=== PATIENT | female | born 1940 | race Caucasian/White ===

== ENCOUNTER 2016-05-06 23:31 | Emergency (ER) | payer BC ==
[~2016-05-06] VITALS: Ht 167.6 cm; Wt 63.2 kg
[~2016-05-06 23:31] MED LIST: ALBUAER2 INH; ASPCH81X PO; CLOP1TAB5 PO; MAGN400T6 PO; METO25TA56 PO; MULT-506 PO; PRED1SUS3; SIMV-151 PO; SNG10 PO; ZLF/50 PO
[2016-05-06 23:32] VITALS: TEMP 36.9; Ht 167.6 cm; Wt 63.2 kg
--- NOTE | 2016-05-07 00:02 | EMERGENCY ROOM VISIT NOTE ---
History Report prepared by Loreta: Flo Garcia Under the Supervision of: Dr. Mingo Medellin M.D. First contact with patient: 23:38 Chief Complaint: HAND PAIN/INJURY Stated Complaint: RT HAND SWOLLEN History of Present Illness The patient is a 75 year old female who presents to the Emergency Room with complaints of worsening right hand swelling beginning shortly prior to arrival. She states that she noticed the swelling after typing on her computer. She denies any known trauma. The patient has taken Benadryl for her swelling, but has seen no relief. She is on Plavix and aspirin after a previous cardiac bypass surgery. She denies any fevers, chills, nausea, vomiting, headaches, black or blood stools, chest pain, SOB, or rashes. Source of History: patient Onset: shortly prior to arrival Position: hand (right) Quality: other (swelling) Timing: worsening Associated Symptoms: No SOB, No chest pain, No chills, No fevers, No headache, No hematochezia, No melena, No nausea, No vomiting Review of Systems See HPI for pertinent positives & negatives. A total of 6 systems reviewed and were otherwise negative. Past Medical & Surgical Medical Problems: (1) Asthma (2) Heart murmur (3) HTN (hypertension) (4) Hyperlipidemia (5) Sensory stroke Family History Diabetes mellitus FHx: cancer FHx: gallbladder disease FHx: heart disease Hypertension Social History Smoking Status: Never Smoker Alcohol Use: none Marital Status: Housing Status: lives with significant other Occupation Status: employed Current/Historical Medications Scheduled Aspirin (Aspirin Chewable), 81 MG PO QAM Atorvastatin (Lipitor), 20 MG PO DAILY Clopidogrel Bisulfate (Plavix), 75 MG PO QAM Metoprolol Tartrate (Lopressor) (Lopressor), 12.5 MG PO BID Montelukast Sod (Montelukast Sodium), 1 TAB PO QPM Multivitamin (Multivitamin), 1 TAB PO QAM Sertraline HCl (Sertraline HCl), 25 MG PO Q2D Allergies Coded Allergies: No Known Allergies (Unverified , 05/07/16) Physical Exam Vital Signs Date Time Temp Pulse Resp B/P Pulse Ox O2 Delivery O2 Flow Rate FiO2 05/07/16 00:14 73 16 176/84 96 05/06/16 23:32 36.9 75 18 195/90 95 Room Air Physical Exam GENERAL: Patient is well appearing and in minimal distress. HEENT: No acute trauma, normocephalic atraumatic, mucous membranes moist, no nasal congestion, no scleral icterus. NECK: No stridor, no adenopathy, no meningismus, trachea is midline. LUNGS: No dyspnea. Clear to auscultation and equal bilaterally. No wheeze, no rhonchi. HEART: Regular rate and rhythm. No murmurs, rubs, gallops appreciated. ABDOMEN: Soft, nontender, bowel sounds positive, no masses appreciated, no peritonitis. BACK: No midline tenderness, no CVA tenderness EXTREMITIES: Large hematoma over the right dorsal hand extending from the wrist to the knuckles. No tenderness. Normal warmth. No erythema. Intact movement and sensation. NEUROLOGIC: Alert and oriented, no acute motor or sensory deficits, no focal weakness, cranial nerves grossly intact. SKIN: No rash, no jaundice, no diaphoresis. Medical Decision & Procedures ER Provider Diagnostic Interpretation: Three View Right Hand X-ray interpreted by me: soft tissue swelling over distal hand. No fracture or dislocation. ED Course 2339: The patient was evaluated in room C2B. A complete history and physical exam was performed. 0007: Reevaluated the patient. She recalls that she hit her hand off of a door two nights ago, but did not notice any significant swelling until today. Discussed results and discharge instructions: she verbalized understanding and agreement. 0015: The patient is ready for discharge. Medical Decision Differential: Fracture, Dislocation, Cellulitis, Septic Joint, Ligamentous Injury, Effusion, DVT, amongst other pathologies entertained. 75 yr old female with large hematoma over dorsal aspect right hand. On plavix/ asa. On discharge she recalled hitting hand off door 2 days ago thus I feel this is likely delayed bleeded secondary to trauma while on blood thinners. No neuro/vasc compromise. There is no evidence of fracture/dislocation/fb. She has no evidence of infection at the site. Discussed symptoms to monitor for. I had her remove rings on that hand in cause swelling increases. Impression Primary Impression: Spontaneous hematoma of hand Scribe Attestation The scribe's documentation has been prepared under my direction and personally reviewed by me in its entirety. I confirm that the note above accurately reflects all work, treatment, procedures, and medical decision making performed by me. Departure Information Dispostion Home / Self-Care Referrals Bright Carl M.D. (PCP) Patient Instructions ED Hematoma, [facility]
[2016-05-07] MEDS ORDERED: ATOR-22 PO (00:13)
[2016-05-07 00:14] VITALS: BP 176/84; PULSE 73; O2SAT 96
--- NOTE | 2016-05-07 07:43 | DIAGNOSTIC IMAGING REPORT ---
RIGHT HAND 3 VIEWS CLINICAL HISTORY: Soft tissue swelling. No reported history of trauma. FINDINGS: 3 views of the right hand are obtained. No prior studies are available for comparison at the time of dictation. The skeletal structures are osteopenic. No fracture is seen. Mild osteoarthritic change is present involving the interphalangeal joints as well as the first metacarpophalangeal joint. There is significant dorsal soft tissue edema. No subcutaneous gas or radiodense foreign body is seen. IMPRESSION: 1. There is marked dorsal soft tissue edema. No acute bony abnormality is identified. 2. Osteopenia and mild arthritic change as above. Electronically signed by: Bull Shi M.D. 05/07/2016 7:42 AM Dictated Date/Time: 05/07/2016 7:39 AM
== END 2016-05-07 00:15 | disposition home or self-care (01) ==
LOC: C.EDB 23:31 → C.EDC 05-07 00:15
DX: S60.221A Contusion of right hand, initial encounter (principal); X58.XXXA Exposure to other specified factors, initial encounter; J45.909 Unspecified asthma, uncomplicated; R01.1 Cardiac murmur, unspecified; I10 Essential (primary) hypertension; E78.5 Hyperlipidemia, unspecified; Z86.73 Personal history of transient ischemic attack (TIA), and cerebral infarction without residual deficits; Z82.49 Family history of ischemic heart disease and other diseases of the circulatory system; Z79.02 Long term (current) use of antithrombotics/antiplatelets; Z79.82 Long term (current) use of aspirin; Z79.899 Other long term (current) drug therapy

== ENCOUNTER → 2016-09-19 | Outpatient (CLI) | payer BC ==
[~2016-09-19] MED LIST changes: -ALBUAER2 INH; +ATOR-22 PO; -MAGN400T6 PO; -PRED1SUS3; -SIMV-151 PO
--- NOTE | 2016-09-19 13:48 | MAMMOGRAPHY REPORT ---
BILATERAL DIGITAL SCREENING MAMMOGRAM WITH CAD: 09/19/2016 CLINICAL HISTORY: Routine screening. Patient has no complaints. TECHNIQUE: Current study was also evaluated with a Computer Aided Detection (CAD) system. Bilateral CC and MLO views were obtained. COMPARISON: Comparison is made to exams dated: 09/11/2015 mammogram, 09/05/2014 mammogram, 08/23/2013 ma mmogram, 07/07/2012 mammogram, 06/11/2011 mammogram, and 06/05/2010 mammogram - [facility] ter. BREAST COMPOSITION: The tissue of both breasts is heterogeneously dense, which may obscure small mas ses. FINDINGS: No suspicious masses, calcifications, or areas of architectural distortion are noted in ei ther breast. There has been no significant interval change compared to prior exams. Scattered bilate ral benign-appearing calcifications are not significantly changed. A linear scar marker denotes a sc ar on the right upper outer breast. IMPRESSION: ACR BI-RADS CATEGORY 2: BENIGN There is no mammographic evidence of malignancy. A 1 year screening mammogram is recommended. The pa tient will receive written notification of the results. Approximately 10% of breast cancers are not detected with mammography. A negative mammographic report should not delay biopsy if a clinically suggestive mass is present. Анна Conley M.D. /:09/19/2016 11:09:16 Wellness Coordinator: Brandy Smallwood [facility] letter sent: Normal 1/2 BI-RADS Code: ACR BI-RADS Category 2: Benign
== END | disposition home or self-care (01) ==
LOC: C.MAMM 09:54
PROVIDERS: ATTEND Family Medicine
DX: Z12.31 Encounter for screening mammogram for malignant neoplasm of breast (principal)

== ENCOUNTER → 2017-05-11 | Outpatient (CLI) | payer OTHER | END | disposition home or self-care (01) | LOC: C.MAMM 07:57 | PROVIDERS: ATTEND Family Medicine | DX: E28.39 Other primary ovarian failure (principal) ==

== ENCOUNTER → 2017-06-05 | Outpatient (CLI) | payer OTHER | END | disposition home or self-care (01) | LOC: C.LAB1850 08:32 | PROVIDERS: ATTEND Internal Medicine Cardiovascular Disease | DX: E78.00 Pure hypercholesterolemia, unspecified (principal); I25.10 Atherosclerotic heart disease of native coronary artery without angina pectoris ==

== ENCOUNTER 2020-08-06 00:18 | Inpatient (IN) ==
[2020-08-06] MEDS ORDERED: SODIUM CHLORIDE 0.9% 1000ML 1,000 ML IV ONE ×2 (00:34→01:43)
--- NOTE | 2020-08-06 01:12 | Emergency Department Note ---
Impression & Plan Acute hypotension, Diarrhea, Vomiting, Acidosis, lactic ED Provider Note NAME: LAURA BARBER AGE: 79 SEX: F : 1940 ARRIVES VIA: Walk-In INFORMANT: Patient, the patient's family member ED PROVIDER(S): Jim Tabares DO CHIEF COMPLAINT: Diarrhea HPI: The patient is a 79-year-old female who presented to the emergency department for an evaluation of diarrhea. 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 She has not had surgery or radiation therapy but started having chemotherapy recently. The patient started having abdominal cramping and loose bowel movements over the last 48 hours. Her symptoms have become significantly worsened over the last day. The patient states she is also had generalized weakness. She was noted to have low blood pressure. She denies having any fever or chest pain. She denies having any cough. The patient herself has noticed some rectal bleeding but only after she has an episode of diarrhea. She has had no hematemesis. The patient states her symptoms are moderate to severe. She is not been seen recently by her primary care physician. ROS: See above HPI for pertinent positives & negatives. A total of 10 systems reviewed and were otherwise negative. PAST MEDICAL HISTORY: See Below PAST SURGICAL HISTORY: See Below FAMILY HISTORY: See Below SOCIAL HISTORY: See Below HOME MEDICATIONS: See Below ALLERGIES: See Below VITALS: See Below PHYSICAL EXAMINATION: GENERAL: The patient is awake and alert. She is very anxious appearing appears to be in significant pain. EYES: The conjunctivae are clear. The pupils are round and reactive. EARS, NOSE, MOUTH AND THROAT: The nose is without any evidence of any deformity. NECK: The neck is nontender and supple. RESPIRATORY: Normal respiratory effort is noted there is no evidence of wheezing rhonchi or rales CARDIOVASCULAR: Regular rate and rhythm was noted to auscultation. Systolic murmur was noted. GASTROINTESTINAL: The abdomen is soft and mildly distended. There is diffuse tenderness to palpation but no guarding rigidity. MUSCULOSKELETAL/EXTREMITIES: There is no evidence of gross deformity full range of motion is noted in the hips and shoulders. SKIN: Skin is cool and diaphoretic. There is no significant pedal edema. NEUROLOGIC: Patient is awake alert and oriented x3 strength is symmetric patellar reflexes are 2+ bilaterally MEDICAL DECISION MAKING: The patient is a 79-year-old female who was diagnosed with cholangiocarcinoma in March this year. She started receiving chemotherapy recently. She started blanc ving abdominal discomfort and diarrhea earlier tonight. The patient was having significant symptoms and had multiple episodes of watery diarrhea. She was hypotensive initially. She was treated with IV fluids and IV antiemetics. She was reevaluated multiple times. She was feeling significantly improved on reevaluation but continued to have significant amount of diarrhea. For this reason I [facility] to evaluate the patient in the emergency department for further management and disposition. The patient's x-ray does not appear to be consistent with bowel obstruction. The patient's laboratory studies do not appear to be consistent with an infectious process however stool studies are pending at this time. Triage Nursing notes reviewed. Prior medical records reviewed Vital Signs: reviewed and remarkable for initial hypotension. Differential diagnosis: Infection, dehydration, metabolic abnormality, hypo/hyperglycemia, electrolyte disturbance, anemia, hypoxia, cardiac sources, intracerebral event, toxicologic, neurologic, as well as other pathologies. ER treatment provided: See below Diagnostics interpreted by me: ECG: EKG was obtained in the emergency department. My interpretation is sinus rhythm at 86 bpm. There is no PVCs noted. Right bundle branch block pattern was noted. This was compared to a tracing from April 12, 2014. No significant changes were noted. Cardiac Monitoring: An order was placed for continuous cardiac monitoring. The monitor shows a rate of 85 bpm with sinus rhythm. Laboratory studies: As stated above and show below. Imaging studies: See below Consultation(s): 0200: I discussed this case with Dr. Soria who [facility] They have agreed to evaluate the patient in the emergency department for further management and disposition. Past Med/Surg History Medical History Abnormal finding on EKG Asthma Chest pain on exertion (04/22/13) Cholangiocarcinoma Heart murmur HTN (hypertension) Hyperlipidemia Intracranial hemorrhage (11/08/13) Traumatic intracranial hemorrhage Social History Smoking Status: Never smoker Preferred Language: [place] Feels Safe at Home: Yes Allergies Allergies Allergy/AdvReac Type Severity Reaction Status Date / Time No Known Allergies Allergy Mild Unverified 08/06/20 00:28 Home Meds Home Medications Medication Instructions Recorded Confirmed amlodipine 5 mg PO DAILY 08/06/20 08/06/20 aspirin [Aspirin Low Dose] 81 mg PO DAILY 08/06/20 08/06/20 clopidogrel 75 mg PO DAILY 08/06/20 08/06/20 losartan 50 mg PO DAILY 08/06/20 08/06/20 metoprolol tartrate 25 mg PO DAILY 08/06/20 08/06/20 montelukast 10 mg PO DAILY 08/06/20 08/06/20 multivitamin 1 tab PO QAM 08/06/20 08/06/20 ondansetron HCl 8 mg PO Q8 PRN 08/06/20 08/06/20 pemigatinib [Pemazyre] 0 mg PO UD 08/06/20 08/06/20 prochlorperazine maleate 10 mg PO Q8 PRN 08/06/20 08/06/20 sertraline 12.5 mg PO DAILY 08/06/20 08/06/20 simvastatin 40 mg PO QPM 08/06/20 08/06/20 Results & Data (ED) Vital Signs Vital Signs - 24 hr 08/06/20 00:24 08/06/20 00:38 08/06/20 00:45 Temperature 36.1 C L Temperature Source Temporal Artery Scan Pulse Rate 94 H 89 84 Pulse Rate from SpO2 Sensor 84 Respiratory Rate 16 15 17 Respiratory Effort / Characteristics Non-Labored Spontaneous Respiratory Depth Normal Respiratory Pattern Regular Blood Pressure 76/52 L 137/58 L 119/61 Blood Pressure Mean 60 84 80 Blood Pressure Position Sitting Pulse Oximetry 97 95 94 Oxygen Delivery Method Room Air Room Air Room Air Sepsis Recent Fever Within 48 Hours No Sepsis New/Unexplained Change in Mental Status No Sepsis Action Taken by Nursing No Action Required 08/06/20 01:00 08/06/20 01:15 Temperature Temperature Source Pulse Rate 83 86 Pulse Rate from SpO2 Sensor 84 86 Respiratory Rate 15 21 Respiratory Effort / Characteristics Respiratory Depth Respiratory Pattern Blood Pressure 114/54 L 136/64 Blood Pressure Mean 74 88 Blood Pressure Position Pulse Oximetry 95 94 Oxygen Delivery Method Room Air Room Air Sepsis Recent Fever Within 48 Hours Sepsis New/Unexplained Change in Mental Status Sepsis Action Taken by Shelter Medications Current Medication List: was personally reviewed by me Laboratory Data Attestation: I reviewed the patient's lab results. Result diagrams: 08/06/20 00:58 08/06/20 00:58 Lab Results 05/01/1708/06/20 08/06/20 Range/Units 00:58 00:58 00:58 WBC 8.73 (4.8-10.8) K/uL RBC 4.17 L (4.2-5.4) M/uL Hgb 13.5 (12.0-16.0) g/dL Hct 40.5 (37-47) % MCV 97.1 (80-100) fL MCH 32.4 (25-34) pg MCHC 33.3 (32-36) g/dL RDW Std Deviation 53.3 H (36.4-46.3) fL RDW Coeff of Tim 15.0 H (11.5-14.5) % Plt Count 339 (130-400) K/uL MPV 10.8 H (7.4-10.4) fL Immature Gran % (Auto) 0.2 % Neut % (Auto) 89.7 % Lymph % (Auto) 7.4 % Darke % (Auto) 1.7 % Eos % (Auto) 0.8 % Baso % (Auto) 0.2 % Neut # (Auto) 7.82 H (1.4-6.5) K/uL Lymph # (Auto) 0.65 L (1.2-3.4) K/uL Darke # (Auto) 0.15 (0.11-0.59) K/uL Eos # (Auto) 0.07 (0-0.5) K/uL Baso # (Auto) 0.02 (0-0.2) K/uL Immature Gran # (Auto) 0.02 (0.00-0.02) K/uL ESR < 1 (0-30) mm/hr PT 12.4 H (9.0-12.0) Seconds INR 1.2 H (0.9-1.1) APTT 20.3 L (21.0-31.0) Seconds PTT Ratio 0.8 Sodium (136-145) mmol/L Potassium (3.5-5.1) mmol/L Chloride (98-107) mmol/L Carbon Dioxide (21-32) mmol/L Anion Gap (3-11) BUN (7-18) mg/dl Creatinine (0.6-1.2) mg/dl Est Cr Clr Drug Dosing ml/min Est GFR ( Amer) Est GFR (Non-Af Amer) BUN/Creatinine Ratio (10-20) Glucose (70-99) mg/dl Lactate (0.4-2.0) mmol/L Calcium (8.5-10.1) mg/dl Magnesium (1.8-2.4) mg/dl Total Bilirubin (0.2-1) mg/dl AST (15-37) U/L ALT (12-78) U/L Alkaline Phosphatase (45-117) U/L Troponin I (0-0.045) ng/ml C-Reactive Protein (0-0.29) mg/dl Total Protein (6.4-8.2) gm/dl Albumin (3.4-5.0) gm/dl Globulin (2.5-4.0) gm/dl Albumin/Globulin Ratio (0.9-2) Procalcitonin (0-0.5) ng/ml COVID-19 Eval Order 08/06/20 08/06/20 08/06/20 Range/Units 00:58 00:58 00:58 WBC (4.8-10.8) K/uL RBC (4.2-5.4) M/uL Hgb (12.0-16.0) g/dL Hct (37-47) % MCV (80-100) fL MCH (25-34) pg MCHC (32-36) g/dL RDW Std Deviation (36.4-46.3) fL RDW Coeff of Tim (11.5-14.5) % Plt Count (130-400) K/uL MPV (7.4-10.4) fL Immature Gran % (Auto) % Neut % (Auto) % Lymph % (Auto) % Darke % (Auto) % Eos % (Auto) % Baso % (Auto) % Neut # (Auto) (1.4-6.5) K/uL Lymph # (Auto) (1.2-3.4) K/uL Darke # (Auto) (0.11-0.59) K/uL Eos # (Auto) (0-0.5) K/uL Baso # (Auto) (0-0.2) K/uL Immature Gran # (Auto) (0.00-0.02) K/uL ESR (0-30) mm/hr PT (9.0-12.0) Seconds INR (0.9-1.1) APTT (21.0-31.0) Seconds PTT Ratio Sodium 142 (136-145) mmol/L Potassium 3.4 L (3.5-5.1) mmol/L Chloride 105 (98-107) mmol/L Carbon Dioxide 26 (21-32) mmol/L Anion Gap 11.0 (3-11) BUN 18 (7-18) mg/dl Creatinine 0.95 (0.6-1.2) mg/dl Est Cr Clr Drug Dosing 44.6 ml/min Est GFR ( Amer) 67.0 Est GFR (Non-Af Amer) 57.8 BUN/Creatinine Ratio 18.6 (10-20) Glucose 112 H (70-99) mg/dl Lactate 3.0 H* (0.4-2.0) mmol/L Calcium 10.0 (8.5-10.1) mg/dl Magnesium 2.2 (1.8-2.4) mg/dl Total Bilirubin 0.6 (0.2-1) mg/dl AST 37 (15-37) U/L ALT 28 (12-78) U/L Alkaline Phosphatase 235 H (45-117) U/L Troponin I < 0.015 (0-0.045) ng/ml C-Reactive Protein < 0.29 (0-0.29) mg/dl Total Protein 7.0 (6.4-8.2) gm/dl Albumin 4.0 (3.4-5.0) gm/dl Globulin 3.0 (2.5-4.0) gm/dl Albumin/Globulin Ratio 1.3 (0.9-2) Procalcitonin 0.09 (0-0.5) ng/ml COVID-19 Eval Order 08/06/20 Range/Units 01:00 WBC (4.8-10.8) K/uL RBC (4.2-5.4) M/uL Hgb (12.0-16.0) g/dL Hct (37-47) % MCV (80-100) fL MCH (25-34) pg MCHC (32-36) g/dL RDW Std Deviation (36.4-46.3) fL RDW Coeff of Tim (11.5-14.5) % Plt Count (130-400) K/uL MPV (7.4-10.4) fL Immature Gran % (Auto) % Neut % (Auto) % Lymph % (Auto) % Darke % (Auto) % Eos % (Auto) % Baso % (Auto) % Neut # (Auto) (1.4-6.5) K/uL Lymph # (Auto) (1.2-3.4) K/uL Darke # (Auto) (0.11-0.59) K/uL Eos # (Auto) (0-0.5) K/uL Baso # (Auto) (0-0.2) K/uL Immature Gran # (Auto) (0.00-0.02) K/uL ESR (0-30) mm/hr PT (9.0-12.0) Seconds INR (0.9-1.1) APTT (21.0-31.0) Seconds PTT Ratio Sodium (136-145) mmol/L Potassium (3.5-5.1) mmol/L Chloride (98-107) mmol/L Carbon Dioxide (21-32) mmol/L Anion Gap (3-11) BUN (7-18) mg/dl Creatinine (0.6-1.2) mg/dl Est Cr Clr Drug Dosing ml/min Est GFR ( Amer) Est GFR (Non-Af Amer) BUN/Creatinine Ratio (10-20) Glucose (70-99) mg/dl Lactate (0.4-2.0) mmol/L Calcium (8.5-10.1) mg/dl Magnesium (1.8-2.4) mg/dl Total Bilirubin (0.2-1) mg/dl AST (15-37) U/L ALT (12-78) U/L Alkaline Phosphatase (45-117) U/L Troponin I (0-0.045) ng/ml C-Reactive Protein (0-0.29) mg/dl Total Protein (6.4-8.2) gm/dl Albumin (3.4-5.0) gm/dl Globulin (2.5-4.0) gm/dl Albumin/Globulin Ratio (0.9-2) Procalcitonin (0-0.5) ng/ml COVID-19 Eval Order CovFluRsv at [facility] Administered Medications Discontinued Medications Sodium Chloride (Nss 1000ml) 1,000 mls @ 999 mls/hr IV .Q1H1M ONE Stop: 08/06/20 01:34 Last Admin: 08/06/20 01:27 Dose: 999 mls/hr Documented by: [id number] Ondansetron HCl (Ondansetron Inj 2 Mg/Ml 2 Ml Vial) 4 mg IV NOW STA Stop: 08/06/20 01:38 Last Admin: 08/06/20 01:41 Dose: 4 mg Documented by: [id number] Ondansetron HCl (Ondansetron Inj 2 Mg/Ml 2 Ml Vial) Confirm Administered Dose 4 mg .ROUTE .STK-MED ONE Stop: 08/06/20 01:38 Last Admin: 08/06/20 01:41 Dose: Not Given Documented by: [id number] Discharge Plan Visit Data Chief Complaint: Diarrhea Stated Complaint: REACTION TO MEDICATION,COLD SHAKY,DIARRHEA ED Provider: Jim Tabares Discharge Problem: Acute hypotension, Diarrhea, Vomiting, Acidosis, lactic Patient Disposition: Being Evaluated by Hospitalist Condition: Good Forms Stand Alone Forms: My [facility] Prescriptions Prescriptions: No Action losartan 50 mg tablet 50 mg PO DAILY RF: 0 amlodipine 5 mg tablet 5 mg PO DAILY RF: 0 simvastatin 40 mg tablet 40 mg PO QPM RF: 0 montelukast 10 mg tablet 10 mg PO DAILY RF: 0 multivitamin Tablet 1 tab PO QAM RF: 0 ondansetron HCl 8 mg tablet 8 mg PO Q8 PRN (Reason: Nausea) RF: 0 aspirin [Aspirin Low Dose] 81 mg Tablet,Delayed Release (Dr/Ec) 81 mg PO DAILY RF: 0 Pemazyre 13.5 mg tablet 0 mg PO UD RF: 0 clopidogrel 75 mg tablet 75 mg PO DAILY RF: 0 metoprolol tartrate 25 mg tablet 25 mg PO DAILY RF: 0 prochlorperazine maleate 10 mg tablet 10 mg PO Q8 PRN (Reason: Nausea) RF: 0 sertraline 50 mg tablet 12.5 mg PO DAILY RF: 0 Referrals Referrals: Bright Carl MD [Primary Care Provider] - Discharge Problem: Diarrhea Qualifiers: Diarrhea type: unspecified type Qualified Code(s): R19.7 - Diarrhea, unspecified Vomiting Qualifiers: Vomiting type: unspecified Vomiting Intractability: non-intractable Nausea presence: with nausea Qualified Code(s): R11.2 - Nausea with vomiting, unspecified
[2020-08-06 01:14] LABS: Basophils # (auto) 0.02 K/uL (0-0.2); Basophils % (auto) 0.2 %; Eosinophils # (auto) 0.07 K/uL (0-0.5); Eosinophils % (auto) 0.8 %; Hematocrit (blood only) 40.5 % (37-47); Hemoglobin 13.5 g/dL (12.0-16.0); Immature Granulocytes # (auto) 0.02 K/uL (0.00-0.02); Immature Granulocytes % (auto) 0.2 %; Lymphocytes # (auto) 0.65 K/uL (1.2-3.4); Lymphocytes % (auto) 7.4 %; Mean Corpuscular Hemoglobin 32.4 pg (25-34); Mean Corpuscular Hgb Conc 33.3 g/dL (32-36); Mean Corpuscular Volume 97.1 fL (80-100); Mean Platelet Volume 10.8 fL (7.4-10.4); Monocytes # (auto) 0.15 K/uL (0.11-0.59); Monocytes % (auto) 1.7 %; Neutrophils # (auto) 7.82 K/uL (1.4-6.5); Neutrophils % (auto) 89.7 %; Platelet Count 339 K/uL (130-400); RDW Standard Deviation 53.3 fL (36.4-46.3); Red Blood Count 4.17 M/uL (4.2-5.4); White Blood Count 8.73 K/uL (4.8-10.8)
[2020-08-06 01:26] LABS: INR 1.2 (0.9-1.1); Partial Thromboplastin Ratio 0.8; Partial Thromboplastin Time 20.3 Seconds (21.0-31.0); Prothrombin Time 12.4 Seconds (9.0-12.0)
[2020-08-06 01:31] LABS: Alanine Aminotransferase 28 U/L (12-78); Aspartate Aminotransferase 37 U/L (15-37); BUN Creatinine Ratio 18.6 (10-20); Blood Urea Nitrogen 18 mg/dl (7-18); Carbon Dioxide 26 mmol/L (21-32); Chloride 105 mmol/L (98-107); Creatinine Clr Calc Pharmacy 44.6 ml/min; Est GFR (Non-African American) 57.8; Glucose 112 mg/dl (70-99); Magnesium 2.2 mg/dl (1.8-2.4); Potassium 3.4 mmol/L (3.5-5.1); Sodium 142 mmol/L (136-145)
[2020-08-06 01:36] LABS: Albumin Globulin Ratio 1.3 (0.9-2); Alkaline Phosphatase 235 U/L (45-117); Bilirubin,Total 0.6 mg/dl (0.2-1); C Reactive Protein < 0.29 mg/dl (0-0.29); Troponin I < 0.015 ng/ml (0-0.045)
[2020-08-06] MEDS ORDERED: ONDANSETRON INJ 2 MG/ML 2 ML VIAL ONE (01:37)
[2020-08-06] MEDS ORDERED: ONDANSETRON INJ 2 MG/ML 2 ML VIAL IV STA (01:37)
--- NOTE | 2020-08-06 01:55 | History & Physical Report ---
Date of Service August 06, 2020 Assessment & Plan (1) Diarrhea: 79 yo F with cholangiocarcinoma undergoing chemotherapy treatment, HTN, Asthma, HLD, CAD s/p CABGx2, Anxiety, admitted for observation for continuing diarrhea, lactic acidosis and hypotension. 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 - recent chemotherapeutic medication change possible etiology for diarrhea; held during hospital stay - consult cancer [facility]/Dr Dangelo for guidance re: chemo changes, cancer management Cardiac Murmur - hx mitral valve "disorder" - outpatient team ordered echo for worsened splitting of murmur, due to be completed 08/21 - ordered for completion while inpatient along with renal artery duplex for recent HTN exacerbation Chronic Medical Conditions HTN: metoprolol 12.5 bid, holding amlodipine & losartan as above CAD: cont asa, plavix, statin Anxiety: cont zoloft, Allergies & Asthma: cont singulair, albuterol inhaler DVT ppx: lovenox daily FEN/GI: heart healthy diet as tolerated Code Status: Full Code (does not want bed bug exterminator mechanical support such as tracheostomy ventilation) Dispo: Med Surg with Tele (2) Hyperlipidemia: (3) Asthma: (4) HTN (hypertension): (5) Acidosis, lactic: (6) Acute hypotension: (7) Vomiting: (8) Cholangiocarcinoma: (9) Anxiety: (10) Mitral valve disorder: History of Present Illness 79 yo F hx recently diagnosed cholangiocarcinoma with multiple chemotherapy treatments, HTN, HLD, intracranial hemorrhage who presents to ED with cc of diarrhea for past day. She started a new chemotherapeutic agent (Pemigatinib) on 07/31 along with 2 new antihypertensives (amlodipine 5 & losartan 50 daily). Symptoms started at 10 pm this evening. Cramping progressed to liquid bowel movements that have persisted. She had 2 nonbloody, nonbilious episodes of emesis prior to arrival in the ED. She attests to having chills but no fever. She denies any cough, SOB, CP, night sweats. She denies any recent camping or hiking trips, no fresh water or raw seafood intake. She has city water at home, and has not eaten anything new/different/out of the ordinary. None of her household contacts have been ill or have similar symptoms. Ed course: initial BP 76/52, improved to 110s/50s after 1L NS bolus. Primary Care Provider: Bright Carl MD Allergies Allergy/AdvReac Type Severity Reaction Status Date / Time cantaloupe Allergy Verified 08/06/20 12:25 melon Allergy Verified 08/06/20 12:25 watermelon Allergy Verified 08/06/20 12:25 Home Medications Medication Instructions Recorded Confirmed Type amlodipine 5 mg PO DAILY 08/06/20 08/06/20 History aspirin [Aspirin Low Dose] 81 mg PO DAILY 08/06/20 08/06/20 History clopidogrel 75 mg PO DAILY 08/06/20 08/06/20 History losartan 50 mg PO DAILY 08/06/20 08/06/20 History metoprolol tartrate 25 mg PO DAILY 08/06/20 08/06/20 History montelukast 10 mg PO DAILY 08/06/20 08/06/20 History multivitamin 1 tab PO QAM 08/06/20 08/06/20 History ondansetron HCl 8 mg PO Q8 PRN 08/06/20 08/06/20 History pemigatinib [Pemazyre] 0 mg PO UD 08/06/20 08/06/20 History prochlorperazine maleate 10 mg PO Q8 PRN 08/06/20 08/06/20 History sertraline 12.5 mg PO DAILY 08/06/20 08/06/20 History simvastatin 40 mg PO QPM 08/06/20 08/06/20 History Past Med/Surg History Medical History (Updated 08/06/20 @ 02:36 by Gabrielle Thayer MD) Abnormal finding on EKG Asthma Chest pain on exertion (04/22/13) Cholangiocarcinoma Diverticulosis GERD (gastroesophageal reflux disease) Heart murmur History of right MCA stroke HTN (hypertension) Hyperlipidemia Intracranial hemorrhage (11/08/13) Mitral valve disorder Traumatic intracranial hemorrhage Surgical History (Updated 08/06/20 @ 02:31 by Gabrielle Thayer MD) History of cataract surgery 07/2015, 05/2015 History of tonsillectomy 1947 S/P CABG x 2 2014 S/P cholecystectomy 2014 Family History (Updated 08/06/20 @ 02:33 by Gabrielle Thayer MD) Mother Colorectal cancer Other Skin cancer Social History Smoking Status: Never smoker Hx Alcohol Use: Yes Alcohol type: wine Hx Substance Use: No Preferred Language: Nigerian Communication Ability: Effective Director Of Exhibits Required: No Beliefs That Will Affect Care: None Current Living Situation: Alone Feels Safe at Home: Yes Safety Concerns: Feels Safe At This Time Assistive Devices: Glasses Review of Systems Constitutional: + chills; no fever, no sweats and no fatigue Eyes: no blind spots and no discharge Ear, Nose, Mouth, Throat: no hearing loss and no nasal congestion Respiratory: no cough and no dyspnea Cardiovascular: no chest pain, no dyspnea on exertion and no edema Gastrointestinal: + abdominal pain, + nausea, + vomiting, + diarrhea/loose stools and + blood in stools; no constipation Genitourinary: no dysuria Musculoskeletal: no joint pain and no myalgia Neurologic: no tingling, no numbness and no headache(s) Endocrine: no fatigue Physical Exam Physical Exam: Constitutional: thin elderly female, sitting in bed shivering under multiple blankets Eyes: EOMI, pupils equal and reactive bilaterally, no scleral icterus Cardiac: RRR, marked left sternal border systolic murmur,no gallops or rubs. Pulm: CTA BL, no wheezes, rhonchi, crackles or rubs,poor air entry at bases bilaterally Abd: soft, nontender, nondistended, hyperactive bowel sounds, no rebound or guarding Extremities: 2+ peripheral pulses, no edema Neuro: no focal deficits, moving all 4 limbs, A&Ox3 Results & Data Results & Data ([facility]) Vital Signs (Past 12 Hours) Vital Signs Temp Pulse Resp BP Pulse Ox 08/06/20 01:15 86 21 136/64 94 08/06/20 01:00 83 15 114/54 L 95 08/06/20 00:45 84 17 119/61 94 08/06/20 00:38 89 15 137/58 L 95 08/06/20 00:24 36.1 C L 94 H 16 76/52 L 97 Laboratory Results WBC 8.73 K/uL (4.8-10.8) 08/06/20 00:58 RBC 4.17 M/uL (4.2-5.4) L 08/06/20 00:58 Hgb 13.5 g/dL (12.0-16.0) 08/06/20 00:58 Hct 40.5 % (37-47) 08/06/20 00:58 MCV 97.1 fL (80-100) 08/06/20 00:58 MCH 32.4 pg (25-34) 08/06/20 00:58 MCHC 33.3 g/dL (32-36) 08/06/20 00:58 RDW Std Deviation 53.3 fL (36.4-46.3) H 08/06/20 00:58 RDW Coeff of Tim 15.0 % (11.5-14.5) H 08/06/20 00:58 Plt Count 339 K/uL (130-400) 08/06/20 00:58 MPV 10.8 fL (7.4-10.4) H 08/06/20 00:58 Immature Gran % (Auto) 0.2 % 08/06/20 00:58 Neut % (Auto) 89.7 % 08/06/20 00:58 Lymph % (Auto) 7.4 % 08/06/20 00:58 Sutter % (Auto) 1.7 % 08/06/20 00:58 Eos % (Auto) 0.8 % 08/06/20 00:58 Baso % (Auto) 0.2 % 08/06/20 00:58 Neut # (Auto) 7.82 K/uL (1.4-6.5) H 08/06/20 00:58 Lymph # (Auto) 0.65 K/uL (1.2-3.4) L 08/06/20 00:58 Sutter # (Auto) 0.15 K/uL (0.11-0.59) 08/06/20 00:58 Eos # (Auto) 0.07 K/uL (0-0.5) 08/06/20 00:58 Baso # (Auto) 0.02 K/uL (0-0.2) 08/06/20 00:58 Immature Gran # (Auto) 0.02 K/uL (0.00-0.02) 08/06/20 00:58 ESR < 1 mm/hr (0-30) 08/06/20 00:58 PT 12.4 Seconds (9.0-12.0) H 08/06/20 00:58 INR 1.2 (0.9-1.1) H 08/06/20 00:58 APTT 20.3 Seconds (21.0-31.0) L 08/06/20 00:58 PTT Ratio 0.8 08/06/20 00:58 Sodium 142 mmol/L (136-145) 08/06/20 00:58 Potassium 3.4 mmol/L (3.5-5.1) L 08/06/20 00:58 Chloride 105 mmol/L (98-107) 08/06/20 00:58 Carbon Dioxide 26 mmol/L (21-32) 08/06/20 00:58 Anion Gap 11.0 (3-11) 08/06/20 00:58 BUN 18 mg/dl (7-18) 08/06/20 00:58 Creatinine 0.95 mg/dl (0.6-1.2) 08/06/20 00:58 Est Cr Clr Drug Dosing 44.6 ml/min 08/06/20 00:58 Est GFR ( Amer) 67.0 08/06/20 00:58 Est GFR (Non-Af Amer) 57.8 08/06/20 00:58 BUN/Creatinine Ratio 18.6 (10-20) 08/06/20 00:58 Glucose 112 mg/dl (70-99) H 08/06/20 00:58 Lactate 3.0 mmol/L (0.4-2.0) H* 08/06/20 00:58 Calcium 10.0 mg/dl (8.5-10.1) 08/06/20 00:58 Magnesium 2.2 mg/dl (1.8-2.4) 08/06/20 00:58 Total Bilirubin 0.6 mg/dl (0.2-1) 08/06/20 00:58 AST 37 U/L (15-37) 08/06/20 00:58 ALT 28 U/L (12-78) 08/06/20 00:58 Alkaline Phosphatase 235 U/L (45-117) H 08/06/20 00:58 Troponin I < 0.015 ng/ml (0-0.045) 08/06/20 00:58 C-Reactive Protein < 0.29 mg/dl (0-0.29) 08/06/20 00:58 Total Protein 7.0 gm/dl (6.4-8.2) 08/06/20 00:58 Albumin 4.0 gm/dl (3.4-5.0) 08/06/20 00:58 Globulin 3.0 gm/dl (2.5-4.0) 08/06/20 00:58 Albumin/Globulin Ratio 1.3 (0.9-2) 08/06/20 00:58 Procalcitonin 0.09 ng/ml (0-0.5) 08/06/20 00:58 COVID-19 Eval Order CovFluRsv at [facility] 08/06/20 01:00 SARS-CoV-2 (PCR) NEGATIVE (Negative) 08/06/20 01:00 Influenza Type A (PCR) Negative (Neg) 08/06/20 01:00 Influenza Type B (PCR) Negative (Neg) 08/06/20 01:00 RSV (RT-PCR) Negative (Neg) 08/06/20 01:00 Supervising Physician Co-Signing Physician Notes Patient seen and examined, chart reviewed, case discussed with Dr. Thayer and I agree with her assessment and plan as documented above. Briefly, patient is a 79yo female with history of locally invasive cholangiocarcinoma, on pemigatinib therapy presenting with severe diarrhea. Patient hypotensive in the ER, responsive to IV fluids. On exam she is now HD stable, NAD sitting in bed, appears comfortable HEENT - NC/AT, PERRL, MMM Heart - +S1/S2, regular, +KIM at LSB to axilla Lungs- CTA Abd - +BS, soft, NT/ND Ext - warm, well perfused Labs and images reviewed Assessment/Plan - suspect diarrhea secondary to pemigatinib therapy -IVF and electrolyte correction -Stool culture, c. diff, WBCs -Remainder of plan as above Resident Activity Tracking Resident Involvement: Resident Care Provided Care Provided: Adult Hospital Medicine (1) Diarrhea Diarrhea type: unspecified type Qualified Code(s): R19.7 - Diarrhea, unspecified (2) Hyperlipidemia Hyperlipidemia type: unspecified Qualified Code(s): E78.5 - Hyperlipidemia, unspecified (3) HTN (hypertension) Hypertension type: unspecified Qualified Code(s): I10 - Essential (primary) hypertension (4) Vomiting Nausea presence: with nausea Vomiting Intractability: non-intractable Vomiting type: unspecified Qualified Code(s): R11.2 - Nausea with vomiting, unspecified (5) Asthma Asthma complication type: uncomplicated Asthma persistence: intermittent Asthma severity: mild Qualified Code(s): J45.20 - Mild intermittent asthma, uncomplicated
[2020-08-06 02:17] LABS: Influenza A virus by PCR Negative (Neg); Influenza B virus by PCR Negative (Neg); RSV by PCR Negative (Neg); SARS CoV2 RNA(COVID-19) InHosp NEGATIVE (Negative)
[2020-08-06 02:35] LABS: Phosphorus 8.6 mg/dl (2.5-4.9)
[2020-08-06] MEDS ORDERED: ENOXAPARIN INJ 40 MG/0.4 ML SYR SQ STA (02:41)
[2020-08-06] MEDS ORDERED: ACETAMINOPHEN 325 MG TAB PO PRN (03:54)
[2020-08-06] MEDS ORDERED: PROCHLORPERAZINE 5 MG in SYRINGE 4 ML IV PRN (03:54)
[2020-08-06] MEDS ORDERED: ZOLPIDEM TARTRATE 5 MG TAB PO PRN (03:54)
[2020-08-06] MEDS ORDERED: NITROGLYCERIN SL 0.4 MG/TAB TAB SL PRN (03:54)
[2020-08-06] MEDS ORDERED: ALUMINUM/MAGNESIUM SUSP 30 ML UDC PO PRN (03:54)
[2020-08-06] MEDS ORDERED: ONDANSETRON 4 MG OD TAB PO PRN (04:12)
[2020-08-06] MEDS: SODIUM CHLORIDE 0.9% 1000ML 1,000 ML IV SCH ×2 (04:42→14:14)
[2020-08-06 07:10] LABS: Basophils # (auto) 0.02 K/uL (0-0.2); Basophils % (auto) 0.1 %; Eosinophils # (auto) 0.02 K/uL (0-0.5); Eosinophils % (auto) 0.1 %; Hematocrit (blood only) 35.3 % (37-47); Hemoglobin 11.7 g/dL (12.0-16.0); Immature Granulocytes # (auto) 0.03 K/uL (0.00-0.02); Immature Granulocytes % (auto) 0.2 %; Lymphocytes # (auto) 0.45 K/uL (1.2-3.4); Lymphocytes % (auto) 3.2 %; Mean Corpuscular Hemoglobin 32.4 pg (25-34); Mean Corpuscular Hgb Conc 33.1 g/dL (32-36); Mean Corpuscular Volume 97.8 fL (80-100); Monocytes # (auto) 1.75 K/uL (0.11-0.59); Monocytes % (auto) 12.4 %; Neutrophils # (auto) 11.81 K/uL (1.4-6.5); Platelet Count 301 K/uL (130-400); RDW Coefficient of Variation 15.1 % (11.5-14.5); Red Blood Count 3.61 M/uL (4.2-5.4); White Blood Count 14.08 K/uL (4.8-10.8)
[2020-08-06 07:29] LABS: INR 1.2 (0.9-1.1); Partial Thromboplastin Time 25.4 Seconds (21.0-31.0); Prothrombin Time 12.4 Seconds (9.0-12.0)
[2020-08-06 07:44] LABS: Albumin Level 3.1 gm/dl (3.4-5.0); BUN Creatinine Ratio 18.2 (10-20); Calcium 8.6 mg/dl (8.5-10.1); Creatinine Clr Calc Pharmacy 47.9 ml/min; Est GFR (African American) 73.5; Est GFR (Non-African American) 63.4; Magnesium 2.1 mg/dl (1.8-2.4); Potassium 3.7 mmol/L (3.5-5.1)
[2020-08-06 07:48] LABS: Albumin Globulin Ratio 1.2 (0.9-2); Bilirubin,Total 0.5 mg/dl (0.2-1); Globulin 2.6 gm/dl (2.5-4.0); Total Protein 5.7 gm/dl (6.4-8.2)
--- NOTE | 2020-08-06 07:54 | XRay Report ---
XR chest 1V portable, XR KUB/Abdomen 1 view HISTORY: 79 years-old Female SEPSIS acute sepsis with diarrhea COMPARISON: Chest CT 04/18/2020, CT abdomen and pelvis 12/24/2015, chest radiograph 04/22/2013 TECHNIQUE: AP view of the chest with KUB radiograph FINDINGS: CHEST: Right IJ [id number] catheter distal tip projects over the right atrium. Prior median sternotomy an d CABG. The heart is mildly enlarged. Calcified plaque of the thoracic aorta. No pneumothorax, pleura l effusion, lobar airspace consolidation or overt pulmonary edema. Minimal interstitial opacities of the lung bases. Degenerative changes of the shoulders and spine. KUB: No pneumoperitoneum identified. The bowel gas pattern is nonobstructive. No urolith. No acute fractur e. Degenerative changes of the spine, pelvis and hips. IMPRESSION: 1. Minimal interstitial opacities of the lung bases may be secondary to summation density versus a no nspecific pneumonitis. 2. Nonobstructive bowel gas pattern. ACT 112: Negative or not required by law. The above report was generated using voice recognition software. It may contain grammatical, syntax o r spelling errors. Electronically signed by: Julio Gamble M.D. 08/06/2020 7:53 AM
[2020-08-06] MEDS: METOPROLOL TARTRATE 25 MG TAB PO SCH ×2 (08:12→20:15)
[2020-08-06] MEDS: PANTOprazole 40 MG in SYRINGE 0 ML IV SCH ×2 (08:12→20:16)
[2020-08-06] MEDS: MONTELUKAST SODIUM 10 MG TABLET PO SCH (08:13)
[2020-08-06] MEDS: ASPIRIN 81 MG ECTAB PO SCH (08:13)
[2020-08-06] MEDS: MULTIVITAMIN TAB PO SCH (08:13)
[2020-08-06] MEDS: CLOPIDOGREL BISULFATE 75 MG TAB PO SCH (08:13)
[2020-08-06] MEDS: SERTRALINE HCL 50 MG TABLET PO SCH (08:13)
--- NOTE | 2020-08-06 08:18 | Ultrasound Report ---
US duplex renal artery HISTORY: 79 years-old Female HTN hypertension. Screening for renal artery stenosis COMPARISON: CT abdomen and pelvis 12/24/2015 TECHNIQUE: Multiple real-time sonographic images of the bilateral renal vascular structures were obta ined assessing grayscale appearance, color and spectral flow FINDINGS: Limited exam secondary to obscuring bowel gas normal plug flow within the abdominal aorta, peak systo lic velocity measuring up to 112 cm/s. The right kidney measures 9.8 cm in length and demonstrates no hydronephrosis or suspicious renal mas s lesion. Patent right renal vein. Peak systolic velocities within the right renal artery measure up to 167 cm/s proximally. Resistive indices measure up to 0.68. The left kidney measures 11.3 cm in length and demonstrates no hydronephrosis or suspicious renal mas s lesion. Patent left renal vein. Peak systolic velocities within the proximal renal artery measure u p to 264 cm/s (renal to aortic ratio of 2.35). Resistive indices measure up to 0.7. IMPRESSION: 1. Elevated peak systolic velocities within the proximal left renal artery may represent renal artery stenosis. 2. No evidence of right-sided renal artery stenosis. ACT 112: Negative or not required by law. The above report was generated using voice recognition software. It may contain grammatical, syntax o r spelling errors. Electronically signed by: Julio Gamble M.D. 08/06/2020 8:17 AM
[2020-08-06 08:36] LABS: Phosphorus 5.5 mg/dl (2.5-4.9)
[2020-08-06 09:29] LABS: Appearance Urine Clear (Clear); Bacteria Urine Automated Negative (Negative); Bilirubin Urine Negative (Negative); Blood Urine 1+ (Negative); Color Urine Yellow; Glucose Urine UA Negative (Negative); Ketones Urine Negative (Negative); Leukocyte Esterase Urine Negative (Negative); Nitrite Urine Negative (Negative); Protein Urine 1+ (Negative); Specific Gravity Urine 1.018 (1.000-1.030); Urobilinogen Urine Negative (Negative)
--- NOTE | 2020-08-06 11:17 | Hospitalist Progress Note ---
Date of Service August 06, 2020 Assessment & Plan (1) Diarrhea: 79 yo F with cholangiocarcinoma undergoing chemotherapy treatment, HTN, Asthma, HLD, CAD s/p CABGx2, Anxiety, admitted for observation for several days of watery diarrhea and resultant HoTN. Since her admission, the watery diarrhea has been more consistent with hematochezia, most likely representing mild ischemic colitis secondary to HoTN -- however, work-up is ongoing. She is hemodynamically stable. Diarrhea with Subsequent Hematochezia -- in setting of interval HoTN - multiple rounds of hematochezia in setting of >48 hours of preceeding continuous, watery diarrhea and profound HoTN (~70/50s) - work-up as follows: - Well-appearing overall. No leukocytosis on admission, but ~14 on day 1 of admission. - JOHN without appreciable external or internal abnormalities - Abdominal exam demonstrating mild RLQ tenderness, but otherwise quite benign - no peritoneal signs - ESR, CRP not elevated - C. diff gene (+), toxin (-) - Procalc (-), lactate initially elevated on arrival --> normalized s/p 1L NSS - KUB, CXR without free air or pneumoperitoneum or other acute processes - stool cultures, ova and parasites pending - stool smear demonstrating many WBCs, normal mixed fecal brenden - recently started pemigatinib this week -- suspect this is most likely the cause of the diarrhea, and that the HoTN precipitated mild ischemic colitis - patient certainly is higher risk for EHEC, CMV colitis given ongoing chemo, but given clinical appearance, infectious labs, these seem less likely right now - but are considered - no indication per hx of foodborne or environmental diarrheal illness - if unimproved despite supportive therapy and without clear cause on labs/cultures, consider CT-A/P - continue mIVF - monitor electrolytes with daily bmp and replete prn - compazine IV for nausea - monitor for anemia, as below Acute Blood-Loss Anemia / LGIB - Hgb on arrival: wnl at 12.6 --> 11.4 in the afternoon of 08/06 - Most likely d/t hematochezia, likely from mild ischemic colitis (ongoing diarrhea --> HoTN --> bowel ischemia --> sloughing = hematochezia) - Not displaying signs/symptoms at present, and patient reports BMs/hematochezia is becoming less frequent - Continue IV PPIs - Transfuse if symptomatic +/- Hgb < 8 - CBC qAM Hypotension -- resolved; hypovolemic 2/2 diarrhea - secondary to ongoing diarrhea - resolved with 2L NSS in ED, ongoing mIVF - maintenance NS 97 ml/hr - encourage PO fluid as tolerated - holding amlodipine and losartan Locally invasive Cholangiocarcinoma - chronically elevated alk phos - recent chemotherapeutic medication change possible etiology for diarrhea; held during hospital stay - consult cancer [facility]/Dr Dangelo for guidance re: chemo changes, cancer management -- appreciate insight and reecommendations Cardiac Murmur - hx mitral valve "disorder" - outpatient team ordered echo for worsened splitting of murmur, due to be completed 08/21 - ordered for completion while inpatient along with renal artery duplex for recent HTN exacerbation HTN - follows with Lisa Charles as outpatient --> recently seen for resistant HTN despite several therapies - Renal duplex artery done while here demonstrating elevated pressures within proximal L renal artery, likely SOM - Will require further coordination as outpatient - Continue metoprolol 12.5 b.i.d., otherwise hold amlodipine/losartan as above in setting of ongoing volume loss Chronic Medical Conditions CAD: cont asa, plavix, statin Anxiety: cont zoloft Allergies & Asthma: cont singulair, albuterol inhaler DVT ppx: lovenox daily, PPIs in setting of LGIB FEN/GI: heart healthy diet as tolerated Code Status: Full Code (does not want show host/hostess mechanical support such as tracheostomy ventilation) Dispo: Med Surg with Tele (2) Hyperlipidemia: (3) Asthma: (4) HTN (hypertension): (5) Acidosis, lactic: (6) Acute hypotension: (7) Vomiting: (8) Cholangiocarcinoma: (9) Anxiety: (10) Mitral valve disorder: Admission and Anticipated Discharge Date Admission Date: August 06, 2020 Supervising Physician Co-Signing Physician Notes I personally examined the patient and verified all ko points of history and exam, discussed case, and agree with decision making with Dr Mccullough. Feeling about the same as far as diarrhea, abdominal pain may be slightly better. Otherwise no new complaints. Vitals noted, in general she is awake and alert pleasant no distress. HEENT normocephalic atraumatic mucous membranes moist. Abdomen is soft nondistended nontender no masses organomegaly. Skin shows no rashes no pallor or icterus. Diarrheaalmost certainly chemotherapy side effect, bloody would not likely be direct followed from the chemo, but I agree with Dr. Mccullough given the evolution of the bloody diarrhea, that likely hypotension caused a degree of mucosal ischemia. Continue to follow closely for anything appearing more consistent with infectious diarrhea, but thus far no role for antibiotics indicated (especially with bloody diarrhea). Hemodynamically improved, hypotension/possible early hypovolemic shock has now resolved. Continue supportive care and follow closely. Otherwise as above. Subjective Multiple bloody bowel movements overnight -- patient reporting now it seems to be happening all the time. Blood minimally present beforehand. No lightheaded or dizziness. No palpitations or SOB. Belly pain approx. 2/10 while sitting in bed, but does come in waves where it will get worse. Does not endorse having an appetite this AM - but says this is kind of baseline for her. She wonders whether or not the new chemotherapy agent may have caused all of this. Review of Systems Review of Systems: as per HPI Physical Exam Physical Exam: General: 79 year old female who is alert, oriented, and appears in no acute distress. HEENT: NCAT. Eyes - Sclera are white, anicteric, and without injection. PERRL. Mouth - MMM with no tonsillar edema or exudates. Cardiac: Normal rate and regular rhythm; S1 and S2 present with grade 2/6 KIM best heard at the RUSB. Pulmonary: Good respiratory effort with symmetric expansion of the chest. No use of accessory muscles. Lungs were clear to auscultation bilaterally with no crackles or wheezes. Abdominal: Normoactive bowel sounds. Abdomen was soft, nondistended. Mild TTP in the RLQ. No rebound or guarding. JOHN: Nursing, PHYSICIAN GYNECOLOGIST present during entire examination. Evidence of dried blood around the anus. No observable external hemorrhoids. No fissures. Internal rectal exam reveals normal sphincter tone. No appreciable or palpable abnormalities. Minimal dried blood on glove. Extremities: Upper and lower extremities are warm and well perfused. Radial pulses were 2+ b/l. No peripheral edema. Results & Data Results & Data ([facility]) Vital Signs (Past 12 Hours) Vital Signs Temp Pulse Pulse Resp BP BP BP 08/06/20 07:56 37.1 C 83 18 120/56 L 08/06/20 07:30 83 08/06/20 07:27 91 H 08/06/20 06:39 80 08/06/20 03:58 37.7 C H 93 H 18 166/76 H 08/06/20 03:30 83 21 137/70 08/06/20 03:15 85 19 149/60 H 08/06/20 03:01 85 17 143/63 H 08/06/20 02:45 85 21 114/55 L 08/06/20 02:30 82 18 131/75 08/06/20 02:21 82 17 120/58 L 08/06/20 02:15 83 19 08/06/20 02:00 83 21 08/06/20 01:45 95 H 14 08/06/20 01:30 85 21 123/56 L 08/06/20 01:15 86 21 136/64 08/06/20 01:00 83 15 114/54 L 08/06/20 00:45 84 17 119/61 08/06/20 00:38 89 15 137/58 L 08/06/20 00:24 36.1 C L 94 H 16 76/52 L Pulse Ox 08/06/20 07:56 95 08/06/20 07:30 08/06/20 07:27 08/06/20 06:39 08/06/20 03:58 93 08/06/20 03:30 90 08/06/20 03:15 93 08/06/20 03:01 93 08/06/20 02:45 93 08/06/20 02:30 93 08/06/20 02:21 94 08/06/20 02:15 94 08/06/20 02:00 94 08/06/20 01:45 94 08/06/20 01:30 93 08/06/20 01:15 94 08/06/20 01:00 95 08/06/20 00:45 94 08/06/20 00:38 95 08/06/20 00:24 97 Resident Activity Tracking Resident Involvement: Resident Care Provided Care Provided: Adult Hospital Medicine (1) Diarrhea Diarrhea type: unspecified type Qualified Code(s): R19.7 - Diarrhea, unspecified (2) Hyperlipidemia Hyperlipidemia type: unspecified Qualified Code(s): E78.5 - Hyperlipidemia, unspecified (3) HTN (hypertension) Hypertension type: unspecified Qualified Code(s): I10 - Essential (primary) hypertension (4) Vomiting Nausea presence: with nausea Vomiting Intractability: non-intractable Vomiting type: unspecified Qualified Code(s): R11.2 - Nausea with vomiting, unspecified (5) Asthma Asthma complication type: uncomplicated Asthma persistence: intermittent Asthma severity: mild Qualified Code(s): J45.20 - Mild intermittent asthma, uncomplicated
[2020-08-06 12:00] LABS: Cdiff Antigen Positive; Cdiff Toxin A+B Negative Cdiff Toxin (Negative)
[2020-08-06 15:19] LABS: Hematocrit (blood only) 34.1 % (37-47); Hemoglobin 11.4 g/dL (12.0-16.0)
--- NOTE | 2020-08-06 17:02 | XCELERA ---
[id number] [id number]
--- NOTE | 2020-08-06 18:02 | Billing Data ---
Date of Service August 06, 2020 Coding Level of Care Code 16359 Subseq Hosp Care Lvl 3
[2020-08-06] MEDS ORDERED: SIMVASTATIN 40 MG TAB PO SCH (21:00)
--- NOTE | 2020-08-06 22:59 | Billing Data ---
Date of Service August 06, 2020 Coding Level of Care Code 48203 Initial Inpt Care Lvl 3
--- NOTE | 2020-08-06 23:12 | Electrocardiogram Report ---
Test Reason : Blood Pressure : / mmHG Vent. Rate : 086 BPM Atrial Rate : 086 BPM P-R Int : 156 ms QRS Dur : 138 ms QT Int : 400 ms P-R-T Axes : 000 092 004 degrees QTc Int : 478 ms Normal sinus rhythm Right bundle branch block T wave abnormality, consider inferior ischemia Abnormal ECG When compared with ECG of 12-APR-2014 00:49, T wave inversion now evident in Inferior leads Confirmed by Orlando Trinidad ([id number]) on 08/06/2020 11:12:13 PM Referred By: REFERRED SELF Confirmed By:Orlando Trinidad
[2020-08-07] MEDS: SODIUM CHLORIDE 0.9% 1000ML 1,000 ML IV SCH ×2 (00:17→09:44)
[2020-08-07 05:50] LABS: Basophils # (auto) 0.04 K/uL (0-0.2); Basophils % (auto) 0.3 %; Eosinophils # (auto) 0.17 K/uL (0-0.5); Eosinophils % (auto) 1.3 %; Hematocrit (blood only) 33.5 % (37-47); Immature Granulocytes # (auto) 0.04 K/uL (0.00-0.02); Immature Granulocytes % (auto) 0.3 %; Lymphocytes # (auto) 1.48 K/uL (1.2-3.4); Lymphocytes % (auto) 10.9 %; Mean Corpuscular Hemoglobin 32.3 pg (25-34); Mean Corpuscular Hgb Conc 32.8 g/dL (32-36); Mean Corpuscular Volume 98.2 fL (80-100); Monocytes # (auto) 1.74 K/uL (0.11-0.59); Monocytes % (auto) 12.8 %; Neutrophils # (auto) 10.09 K/uL (1.4-6.5); Neutrophils % (auto) 74.4 %; Platelet Count 242 K/uL (130-400); RDW Coefficient of Variation 15.3 % (11.5-14.5); RDW Standard Deviation 55.1 fL (36.4-46.3); Red Blood Count 3.41 M/uL (4.2-5.4); White Blood Count 13.56 K/uL (4.8-10.8)
[2020-08-07] MEDS ORDERED: ENOXAPARIN INJ 40 MG/0.4 ML SYR SQ SCH (06:00)
[2020-08-07 06:32] LABS: Albumin Globulin Ratio 1.3 (0.9-2); Albumin Level 2.8 gm/dl (3.4-5.0); BUN Creatinine Ratio 15.9 (10-20); Bilirubin,Total 0.9 mg/dl (0.2-1); Calcium 8.1 mg/dl (8.5-10.1); Creatinine Clr Calc Pharmacy 70.1 ml/min; Est GFR (African American) 101.3; Est GFR (Non-African American) 87.4; Globulin 2.2 gm/dl (2.5-4.0); Potassium 3.6 mmol/L (3.5-5.1)
[2020-08-07] MEDS: METOPROLOL TARTRATE 25 MG TAB PO SCH (08:03)
[2020-08-07] MEDS: MULTIVITAMIN TAB PO SCH (08:03)
[2020-08-07] MEDS: MONTELUKAST SODIUM 10 MG TABLET PO SCH (08:04)
[2020-08-07] MEDS: SERTRALINE HCL 50 MG TABLET PO SCH (08:04)
[2020-08-07] MEDS: ASPIRIN 81 MG ECTAB PO SCH (08:04)
[2020-08-07] MEDS: CLOPIDOGREL BISULFATE 75 MG TAB PO SCH (08:04)
[2020-08-07] MEDS: PANTOprazole 40 MG in SYRINGE 0 ML IV SCH (08:12)
--- NOTE | 2020-08-07 09:39 | Consultation Report ---
DATE OF CONSULTATION: 08/07/2020 REASON FOR CONSULTATION: A 79-year-old female patient with intrahepatic cholangiocarcinoma, admitted for hematochezia. HISTORY OF PRESENT ILLNESS: The patient is a pleasant, somewhat unfortunate 79-year-old female patient under [facility] care for recent diagnosis of intrahepatic cholangiocarcinoma. She was subsequently admitted to [facility] on 08/06/2020 with subacute onset watery diarrhea. The patient had contacted the service over the weekend alerting me that she was probably coming to the Emergency Room. 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 She was diagnosed with intrahepatic cholangiocarcinoma in mid 03/2020. She is in consultation with Hepatology and Medical Oncology at the [facility] who had initially recommended neoadjuvant cisplatin and gemcitabine in combination. She had actually received her initial course in [place]. That said, she had visited with them in mid June and apparently there was radiographically evident disease progression and thus discontinued cytotoxic chemotherapy in favor of pemigatinib which is a novel tyrosine kinase inhibitor, specifically FGFR inhibitor. She estimates being on drug for approximately 5 days before developing symptoms. Reviewing the side effect profile this novel agent, most likely implicates the agent being the cause of her GI side effects. There is an extensive list including electrolyte dysfunction as well as GI side effects associated with pemigatinib. At bedside this morning, she is feeling much better. KUB was performed showing no evidence of a small-bowel obstruction. PAST MEDICAL HISTORY: Significant for intrahepatic cholangiocarcinoma, mitral valve disorder, actinic keratoses, anxiety, asthma, coronary artery disease, diverticulosis of the colon, dyspepsia, hypertension. PAST SURGICAL HISTORY: Includes cholecystectomy, coronary artery bypass grafting, ganglionectomy, tonsillectomy and adenoidectomy as well as tendon repair. MEDICATIONS: Simvastatin 40 mg p.o. daily, sertraline 12.5 mg p.o. daily, Compazine 10 mg p.o. q. 8 hours p.r.n., pemigatinib 13.5 mg p.o. daily, Zofran 8 mg p.o. q. 8 hours p.r.n., multivitamin 1 tablet p.o. daily, montelukast 10 mg p.o. daily, metoprolol 25 mg p.o. daily, losartan 50 mg p.o. daily, clopidogrel 75 mg p.o. daily, aspirin 81 mg p.o. daily, amlodipine 5 mg p.o. daily. ALLERGIES: [place]EL[place], [place]. SOCIAL HISTORY: The patient is retired [employer] professor. She lives with her . Negative for cigarettes, or illicit drugs. She does drink alcohol socially. FAMILY HISTORY: Mother with history of colorectal cancer. REVIEW OF SYSTEMS: CONSTITUTIONAL: As per HPI, most notably for crampy abdominal pain, fluctuating blood pressure. No fevers, chills or sweats. She is not anorexic or losing weight. SKIN: No rashes or lesions. No history of dermatoses. HEENT: Negative for headaches, lightheadedness or dizziness. No acute visual or hearing deficits. No sinus symptoms, sore throat or dysphagia. LYMPH: No history of lymphoproliferative disease. CARDIAC: Positive for coronary artery disease, no angina or palpitations. PULMONARY: Negative for COPD. She is not acutely short of breath, dyspneic or orthopneic. No cough or hemoptysis. GASTROINTESTINAL: As per HPI. GENITOURINARY: No hematuria, dysuria, urinary incontinence. MUSCULOSKELETAL: No focal muscle weakness or arthralgias. ENDOCRINE: Negative for diabetes or thyroid disease. NEUROLOGIC: Negative for seizure, stroke, or migraine headache. HEMATOLOGIC: Positive for mild anemia and leukocytosis. PHYSICAL EXAMINATION: GENERAL: Very pleasant 79-year-old female, awake, alert and appropriate, in no acute distress. VITAL SIGNS: Temperature 37.1, pulse 82, respiratory rate 18, blood pressure 154/52. SKIN: Warm, dry, noncyanotic without petechia, rash or ecchymosis. HEENT: Head is atraumatic, normocephalic. Eyes: PERRLA, EOMI. Sclerae nonicteric. No conjunctival injection. Nares are patent without rhinorrhea or discharge. Throat is clear. Tongue is midline. Mucous membranes are moist. NECK: Supple without JVD or thyromegaly. LYMPHATICS: No cervical or supraclavicular palpable nodes. HEART: Regular rate and rhythm. No clicks, rubs, murmurs or gallops. LUNGS: Clear to auscultation bilaterally. ABDOMEN: Soft, nontender, nondistended, without palpable hepatosplenomegaly. EXTREMITIES: No calf tenderness or swelling. No clubbing, cyanosis or edema. NEUROLOGICALLY: She is awake, alert and oriented x3. Cranial nerves are grossly intact. LABORATORY DATA: WBC count 13,560, hemoglobin 11, platelet count 242,000, absolute neutrophil count 10,000. Sodium 142, potassium 3.6, chloride 111, carbon dioxide 28, creatinine 0.61, BUN 10, glucose 109. Alkaline phosphatase 144, albumin 2.8. Urinalysis reveals microhematuria. Positive Clostridium difficile gene, but negative toxin. IMPRESSION: 1. Hematochezia/diarrhea. 2. Acute blood loss anemia. 3. Intrahepatic cholangiocarcinoma. 4. Hypotension. 5. Hypoalbuminemia. PLAN: The patient is a pleasant 79-year-old female patient well known to [facility] with a diagnosis of intrahepatic cholangiocarcinoma. I met her back in mid April when she was diagnosed with her neoplasia and patient continues to be in consultation with experts at [facility] in [place]. They had recommended neoadjuvant chemotherapy as patient was not a surgical candidate on presentation. She received, I believe, 4 cycles of cisplatin and gemcitabine, which is current standard. Apparently, patient returned to [place] recently and determined to be suffering disease progression radiographically. Thus, it was decided to place her on pemigatinib 13 mg daily on days 1 through 14 out of a 21-day cycle. Unfortunately, patient only took drug for about 5 days before developing GI symptoms. She has discontinued drug throughout her hospital stay and would recommend doing so for the next week or beyond.. Perhaps an alternating strategy might be beneficial. I have very limited experience with this agent and would ask for [facility]'s guidance regarding if and when to resume. I discussed this with patient at bedside today. Fortunately, she seems to be feeling much better and probably very close to discharge. We will ensure post-hospitalization followup upon discharge. She also needs to continue increasing her protein intake as her albumin is quite low. I have nothing further to add. I agree with medical management at this point. If there are further concerns, please feel free to contact me at any time. MTDD
[2020-08-07] MEDS ORDERED: SIMETHICONE 80 MG CHEW PO PRN (10:45)
--- NOTE | 2020-08-07 12:18 | Hospitalist Progress Note ---
Date of Service August 07, 2020 Assessment & Plan (1) Diarrhea: 79 yo F with cholangiocarcinoma undergoing chemotherapy treatment, HTN, Asthma, HLD, CAD s/p CABGx2, Anxiety, admitted for observation for several days of watery diarrhea and resultant HoTN. Since her admission, the watery diarrhea has been more consistent with hematochezia, most likely representing mild ischemic colitis secondary to HoTN -- however, work-up is ongoing. She is hemodynamically stable. Diarrhea with Subsequent Hematochezia -- in setting of interval HoTN - multiple rounds of hematochezia in setting of >48 hours of preceeding continuous, watery diarrhea and profound HoTN (~70/50s) - work-up as follows: - Well-appearing overall. No leukocytosis on admission, but ~14 on day 1 of admission. - JOHN without appreciable external or internal abnormalities - Abdominal exam demonstrating mild RLQ tenderness, but otherwise quite benign - no peritoneal signs - ESR, CRP not elevated - C. diff gene (+), toxin (-) - Procalc (-), lactate initially elevated on arrival --> normalized s/p 1L NSS - KUB, CXR without free air or pneumoperitoneum or other acute processes - stool cultures, ova and parasites pending - stool smear demonstrating many WBCs, normal mixed fecal brenden - recently started pemigatinib this week -- suspect this is most likely the cause of the diarrhea, and that the HoTN precipitated mild ischemic colitis - patient certainly is higher risk for EHEC, CMV colitis given ongoing chemo, but given clinical appearance, infectious labs, these seem less likely right now - but are considered - no indication per hx of foodborne or environmental diarrheal illness - number and frequency of BMs slowing down -- becoming more formed, less bloddy, but still - monitor electrolytes with daily bmp and replete prn - compazine IV for nausea - Add simethicone p.r.n. for cramping - Avoid antimotility agents Acute Blood-Loss Anemia / LGIB - Hgb on arrival: wnl at 12.6 --> stable at 11 on 08/06- - Most likely d/t hematochezia, likely from mild ischemic colitis (ongoing diarrhea --> HoTN --> bowel ischemia --> sloughing = hematochezia) - Not displaying signs/symptoms at present, and patient reports BMs/hematochezia is becoming less frequent - Continue IV PPIs - Transfuse if symptomatic +/- Hgb < 8 - CBC qAM Hypotension -- resolved; hypovolemic 2/2 diarrhea - secondary to ongoing diarrhea - resolved with 2L NSS in ED, ongoing mIVF - discontinue IVF given good PO intake, consistent HTN - holding amlodipine and losartan Locally invasive Cholangiocarcinoma - chronically elevated alk phos - recent chemotherapeutic medication change possible etiology for diarrhea; held during hospital stay - consult [facility]/Dr Dangelo for guidance re: chemo changes, cancer management -- appreciate insight and recommendations - Recommend possibly alternating administration of new therapeutic, at dis cretion of [facility] - Follow-up as outpatient Cardiac Murmur - hx mitral valve "disorder" - outpatient team ordered echo for worsened splitting of murmur, due to be comp leted 08/21 - Hyperdynamic LV with EF > 70%. No WMAs - ordered for completion while inpatient along with renal artery duplex for recent HTN exacerbation HTN - follows with Lisa Charles as outpatient --> recently seen for resistant HTN despite several therapies - Renal duplex artery done while here demonstrating elevated pressures within proximal L renal artery, likely SOM - Will require further coordination as outpatient - Continue metoprolol 12.5 b.i.d., otherwise hold amlodipine/losartan as above in setting of ongoing volume loss Chronic Medical Conditions CAD: cont asa, plavix, statin Anxiety: cont zoloft Allergies & Asthma: cont singulair, albuterol inhaler DVT ppx: lovenox daily, PPIs in setting of LGIB FEN/GI: heart healthy diet as tolerated Code Status: Full Code (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 Says she initially felt great this morning but then did have one large bowel movement that exacerbated her pain. Was 8/10 at the time, now 3-4/10. Says it feels crampy but "different." Other than this, just feeling tired. Appetite still not great. No nausea or vomiting. BMs are more formed now compared to prior. Blood still present, but less-so than before. She does wonder what she's going to do with regards to this new therapy that she was on and whether or not she will continue / change it Review of Systems Review of Systems: as per HPI Physical Exam Physical Exam: General: 79 year old female who is alert, oriented, and appears in no acute distress. HEENT: NCAT. Eyes - Sclera are white, anicteric, and without injection. PERRL. Mouth - MMM with no tonsillar edema or exudates. Cardiac: Normal rate and regular rhythm; S1 and S2 present with grade 2/6 KIM best heard at the RUSB. Pulmonary: Good respiratory effort with symmetric expansion of the chest. No use of accessory muscles. Lungs were clear to auscultation bilaterally with no crackles or wheezes. Abdominal: Normoactive bowel sounds. Abdomen was soft, nondistended. Mild- moderate TTP in the LLQ. Nowhere else. abnormalities. Minimal dried blood on glove. Extremities: Upper and lower extremities are warm and well perfused. Radial pulses were 2+ b/l. No peripheral edema. Results & Data Results & Data ([facility]) Vital Signs (Past 12 Hours) Vital Signs Temp Pulse Pulse Resp BP Pulse Ox 08/07/20 11:21 37.0 C 82 19 165/72 H 95 08/07/20 08:04 37.2 C 78 19 167/67 H 94 08/07/20 07:34 95 H 08/07/20 03:04 37.1 C 82 18 154/52 H 93 (1) Diarrhea Diarrhea type: unspecified type Qualified Code(s): R19.7 - Diarrhea, unspecified (2) Hyperlipidemia Hyperlipidemia type: unspecified Qualified Code(s): E78.5 - Hyperlipidemia, unspecified (3) HTN (hypertension) Hypertension type: unspecified Qualified Code(s): I10 - Essential (primary) hypertension (4) Vomiting Nausea presence: with nausea Vomiting Intractability: non-intractable Vomiting type: unspecified Qualified Code(s): R11.2 - Nausea with vomiting, unspecified (5) Asthma Asthma complication type: uncomplicated Asthma persistence: intermittent Asthma severity: mild Qualified Code(s): J45.20 - Mild intermittent asthma, uncomplicated
--- NOTE | 2020-08-07 18:31 | Discharge Summary ---
Date of Service August 07, 2020 Admission HPI Per Admitting Provider 79 yo F hx recently diagnosed cholangiocarcinoma with multiple chemotherapy treatments, HTN, HLD, intracranial hemorrhage who presents to ED with cc of diarrhea for past day. She started a new chemotherapeutic agent (Pemigatinib) on 07/31 along with 2 new antihypertensives (amlodipine 5 & losartan 50 daily). Symptoms started at 10 pm this evening. Cramping progressed to liquid bowel movements that have persisted. She had 2 nonbloody, nonbilious episodes of emesis prior to arrival in the ED. She attests to having chills but no fever. She denies any cough, SOB, CP, night sweats. She denies any recent camping or hiking trips, no fresh water or raw seafood intake. She has city water at home, and has not eaten anything new/different/out of the ordinary. None of her household contacts have been ill or have similar sy mptoms. Ed course: initial BP 76/52, improved to 110s/50s after 1L NS bolus. Primary Care Provider: Bright Carl MD Admission Exam Per Admitting Provider Constitutional: thin elderly female, sitting in bed shivering under multiple blankets Eyes: EOMI, pupils equal and reactive bilaterally, no scleral icterus Cardiac: RRR, marked left sternal border systolic murmur,no gallops or rubs. Pulm: CTA BL, no wheezes, rhonchi, crackles or rubs,poor air entry at bases bilaterally Abd: soft, nontender, nondistended, hyperactive bowel sounds, no rebound or guarding Extremities: 2+ peripheral pulses, no edema Neuro: no focal deficits, moving all 4 limbs, A&Ox3 Principal Diagnosis chemotherapy induced diarrhea hypotension mild bowel ischemia Discharge Exam General: 79 year old female who is alert, oriented, and appears in no acute distress. HEENT: NCAT. Eyes - Sclera are white, anicteric, and without injection. PERRL. Mouth - MMM with no tonsillar edema or exudates. Cardiac: Normal rate and regular rhythm; S1 and S2 present with grade 2/6 KIM best heard at the RUSB. Pulmonary: Good respiratory effort with symmetric expansion of the chest. No use of accessory muscles. Lungs were clear to auscultation bilaterally with no crackles or wheezes. Abdominal: Normoactive bowel sounds. Abdomen was soft, nondistended. Mild- moderate TTP in the LLQ. Nowhere else. abnormalities. Minimal dried blood on glove. Extremities: Upper and lower extremities are warm and well perfused. Radial pulses were 2+ b/l. No peripheral edema. Discharge Data Allergies Allergy/AdvReac Type Severity Reaction Status Date / Time cantaloupe Allergy Verified 08/06/20 12:25 melon Allergy Verified 08/06/20 12:25 watermelon Allergy Verified 08/06/20 12:25 Consultations 08/06/20 01:49 ED Decision to Admit Stat 08/06/20 03:54 Consult Hematology Routine Ordered Studies 08/06/20 04:17 US duplex renal artery Routine Hospital Course (1) Diarrhea: 79 yo F with cholangiocarcinoma undergoing chemotherapy treatment, HTN, Asthma, HLD, CAD s/p CABGx2, Anxiety, admitted for observation for several days of watery diarrhea and resultant HoTN. Since her admission, the watery diarrhea has been more consistent with hematochezia, most likely representing mild ischemic colitis secondary to HoTN. She is hemodynamically stable. Diarrhea with Subsequent Hematochezia -- in setting of interval HoTN - multiple rounds of hematochezia in setting of >48 hours of preceeding continuous, watery diarrhea and profound HoTN (~70/50s) - work-up as follows: - Well-appearing overall. No leukocytosis on admission, but ~14 on day 1 of admission. - JOHN without appreciable external or internal abnormalities - Abdominal exam demonstrating mild RLQ tenderness, but otherwise quite benign - no peritoneal signs - ESR, CRP not elevated - C. diff gene (+), toxin (-) - Procalc (-), lactate initially elevated on arrival --> normalized s/p 1L NSS - KUB, CXR without free air or pneumoperitoneum or other acute processes - stool cultures, ova and parasites - preliminarily negative (Salmonella, Shigella, Campylobacter) - stool smear demonstrating many WBCs, normal mixed fecal brenden - recently started pemigatinib this week -- suspect this is most likely the cause of the diarrhea, and that the HoTN precipitated mild ischemic colitis - patient certainly is higher risk for EHEC, CMV colitis given ongoing chemo, but given clinical appearance, infectious labs, these seem less likely right now - but are considered - no indication per hx of foodborne or environmental diarrheal illness - number and frequency of BMs slowing down -- becoming more formed, less blood -- still a mild amount on discharge - continue fiber at discharge Acute Blood-Loss Anemia / LGIB - Hgb on arrival: wnl at 12.6 --> stable at 11 on 08/06- (day of d/c) - Most likely d/t hematochezia, likely from mild ischemic colitis (ongoing diarrhea --> HoTN --> bowel ischemia --> sloughing = hematochezia) - Not displaying signs/symptoms at present, and patient reports BMs/hematochezia is becoming less frequent - Recommend checking CBC within 1 week to check H&H Hypotension -- resolved; hypovolemic 2/2 diarrhea - secondary to ongoing diarrhea - resolved with IVF while here - Can resume PO meds upon discharge Locally invasive Cholangiocarcinoma - chronically elevated alk phos - recent chemotherapeutic medication change possible etiology for diarrhea; held during hospital stay - consult [facility]/Dr Dangelo for guidance re: chemo changes, cancer management -- appreciate insight and recommendations - Recommend possibly alternating administration of new therapeutic, at discretion of [facility] - Follow-up as outpatient - Patient to contact their [facility] providers for guidance going forward and any potential changes in therapy Cardiac Murmur - hx mitral valve "disorder" - outpatient team ordered echo for worsened splitting of murmur, due to be completed 08/21 - Hyperdynamic LV with EF > 70%. No WMAs - ordered for completion while inpatient along with renal artery duplex for recent HTN exacerbation HTN - follows with Lisa Charles as outpatient --> recently seen for resistant HTN despite several therapies - Renal duplex artery done while here demonstrating elevated pressures within proximal L renal artery, likely SOM - Will require further coordination as outpatient - Continue home meds on discharge Chronic Medical Conditions CAD: asa, plavix, statin Anxiety: zoloft Allergies & Asthma: singulair, albuterol inhaler (2) Hyperlipidemia: (3) Asthma: (4) HTN (hypertension): (5) Acidosis, lactic: (6) Acute hypotension: (7) Vomiting: (8) Cholangiocarcinoma: (9) Anxiety: (10) Mitral valve disorder: Total Time Total Time Spent Total Time Spent (In Minutes): <30 minutes Discharge Plan Discharge Items Patient Disposition: Home - Self-Care Reason For Visit: DIARRHEA, HYPOTENSION Discharge Diagnosis: chemotherapy-induced diarrhea hypotension mild ischemic bowel Condition on Discharge: Good Activity: Per Instructions section Non-emergency contact: Primary Care Provider and Oncologist Call non-emergency contact if: you have any medication questions, your symptoms worsen, your pain is not controlled and your temperature is above 101 Follow-up/Referrals: Bright Carl MD [Primary Care Provider] - Diet: Regular Addtl Attending Provider Instructions: You were seen at [facility] for evaluation and care of several days of diarrhea, alongside low blood pressure upon your arrival. During your stay, you received plentiful intravenous fluids to replete free water lost from the frequent bowel movements. You also underwent regular testing to evaluate for the cause of these bowel movements - including the bleeding that occurred while here. Thankfully, there is no sign of acute bowel infection that required antibiotics. Given your recent initiation of the new chemotherapy agent, we do suspect that the major cause of your symptoms is a side effect to this agent. The low blood pressure - as we discussed - likely caused very mild damage of the bowel wall, which subsequently resulted in occasional, but resolving bloody bowel movements. It is very important that you follow-up with your oncologist at [facility] to determine the appropriate next steps going forward with regards to your therapeutic regimen. In the interim, we recommend holding the new agent until otherwise directed from them. Please drink at least 2L fluids / day, primarily b eing non-caffeinated. Please follow-up with your PCP within 1 week to review this visit. In the interim, if you experience any severe recurrence of your symptoms, including worsening diarrhea, increase in bloody stools, new and worsening abdominal pain, lightheadedness/dizziness or other worrisome things, please report back to the ER or call 911 for sooner evaluation. As discussed, it may take another few days for all of your symptoms to resolve. However, we recommend starting your fiber pills back-up to aid in the formation of solid stools. Fiber also promotes gut health and will greatly aid during your time of recovery. It has been a pleasure caring for you here, and wish you all the best in your recovery. Pending Studies at Discharge: No Stand-Alone Forms: [facility], Smoking Cessation Medications and DC Order Prescriptions: Continued losartan 50 mg tablet 50 mg PO DAILY RF: 0 amlodipine 5 mg tablet 5 mg PO DAILY RF: 0 simvastatin 40 mg tablet 40 mg PO QPM RF: 0 montelukast 10 mg tablet 10 mg PO DAILY RF: 0 multivitamin Tablet 1 tab PO QAM RF: 0 ondansetron HCl 8 mg tablet 8 mg PO Q8 PRN (Reason: Nausea) RF: 0 aspirin [Aspirin Low Dose] 81 mg Tablet,Delayed Release (Dr/Ec) 81 mg PO DAILY RF: 0 clopidogrel 75 mg tablet 75 mg PO DAILY RF: 0 metoprolol tartrate 25 mg tablet 25 mg PO DAILY RF: 0 prochlorperazine maleate 10 mg tablet 10 mg PO Q8 PRN (Reason: Nausea) RF: 0 sertraline 50 mg tablet 12.5 mg PO DAILY RF: 0 Discontinued Pemazyre 13.5 mg tablet 0 mg PO UD RF: 0 Discharge Orders: Discharge Order (Routine); Ordered 08/07/20 Ordered By: Hernan Mccullough Admission Data Admit Date/Time: 08/06/20 02:38 Attending Provider: Hernan Oneal Admit Provider: Gabrielle Thayer Primary Care Provider: Bright Carl Other Providers: Nora Soria ; Sid Dangelo V. Other Interventions: Discharge Summary Assessment (RN) Last Done: 08/07/20 17:56 Supervising Physician Co-Signing Physician Notes I personally examined the patient and verified all ko points of history and exam, discussed case, and agree with decision making with Dr Mccullough diarrhea improved, still occurring but feeling better. feels up to going home Vitals noted, in general she is awake and alert pleasant no distress. HEENT normocephalic atraumatic mucous membranes moist. Abdomen is soft nondistended nontender no masses organomegaly. Skin shows no rashes no pallor or icterus. DiarrheaToxic gastroenteritis due to Chemotherapy agent (pemigatinib) causing diarrhea and early hypovolemic shock, leading to ischemic colitis -almost certainly chemotherapy side effect, bloody would not likely be direct followed from the chemo, but I agree with Dr. Mccullough given the evolution of the bloody diarrhea, that likely hypotension caused a degree of mucosal ischemia. Stable, improving enough to go home. close outpt f/u. outpt f/u w oncology as well. otherwise as above Resident Activity Tracking Resident Involvement: Resident Care Provided Care Provided: Adult Hospital Medicine
[2020-08-07] MEDS ORDERED: HEPARIN 100 UNIT/ML 5ML FLUSH ONE (18:34)
--- NOTE | 2020-08-07 19:34 | Billing Data ---
Date of Service August 07, 2020 Coding Level of Care Code D/C Day Management <30 mins
== END 2020-08-07 19:03 | disposition home or self-care (01) | DRG 393 ==
LOC: ED 00:18 → SUATTDRO 02:38 → 2W 02:38